=== PATIENT | female | born 1990 | race Caucasian/White ===

== ENCOUNTER 2024-10-22 04:04 | Emergency (ER) | payer OTHER ==
--- OUTSIDE RECORDS SUMMARY | 2024-10-22 04:08 | XMS REPORT | Continuity of Care Document ---
Author Name Unknown Address [address] [place] [address] [facility] Address [address] [place] [address] Care Team Providers Care Ophthalmic Assistant Name Role Phone Cher Day Attending Clinician Unavailable SAUMYA BUCKNER Attending Clinician Unavailable LAB90 Attending Clinician Unavailable Cher Day Admitting Clinician Unavailable Isaias Lawrence Admitting Clinician Unavailable Payers Payer Name Policy Type Policy Number Effective Date Expirati on Date Source BCBS 2 [id number] 2022 00:00:00 Problems Condition Name Condition Details Condition Category Status Onset Date Resolution Date Last Treatment Date Treating Clinician Comments Source Prediabete s Prediabete s Disease Active - 00:00: 00 Flores chandra BMI 45.0-49.9, adult BMI 45.0-49.9, adult Disease Active - 00:00: 00 Flores Granta l Depression Depression Disease Active 07-25 00:00: 00 Flores Skinner - Juanitaa l Allergies, Adverse Reactions, Alerts Allergy Name Allergy Type Status Severity Reaction(s) Onset Date Inactive Date Treating Clinician Comments Source No Known Allergie s DA Active U 08-20 00:00: 00 [facility] No Known Allergie s DA Active U 08-20 00:00: 00 [facility] Social History Social Habit Start Date Stop Date Quantity Comments Source History SDOH Alcohol Std Drinks Flores Jarvis ybgumaro - External History SDOH Alcohol Binge Flores Skinner - External Gender identity Litzy ey Susanne - External Sexual orientation K angeloy Nancygumaro - External History SDOH Alcohol Frequency Flores jung - External Alcohol intake 2023-02-09 00:00:00 2023-02-09 00:00:00 Current drinker of alcohol (finding) Flores Cruzgumaro - External Alcohol Comment 2022-07-25 00:00:00 2022-07-25 00:00:00 social Flores Skinner - External History of Social function 2022-07-25 00:00:00 2022-07-25 00:00:00 Flores Skinner - External Sex Assigned At 1990 00:00:00 1990 00:00:00 Flores Skinner - External Smoking Status Start Date Stop Date Source Never smoked tobacco Flores Cruzgumaro - External Medications Ordered Medication Name Filled Medication Name Start Date Stop Date Current Medication? Ordering Clinician Indication Dosage Frequency Signature (SIG) Comments Components Source Semaglutide -Weight Management (Wegovy) 1 MG/0.5ML subcutaneou s Solution Auto-inject or 02-09 00:00: 00 Yes [id number] 1mg Inject 1 mg into the skin once a week. Flores Granta prateek Semaglutide -Weight Management (Wegovy) 0.5 MG/0.5ML subcutaneou s Solution Auto-inject or 02-09 00:00: 00 02-09 00:00 :00 No [id number] .5mg Inject 0.5 mg into the skin once a week. Flores Granta prateek Semaglutide -Weight Management (Wegovy) 0.5 MG/0.5ML subcutaneou s Solution Auto-inject or 11-09 00:00: 00 Yes [id number] .5mg Inject 0.5 mg into the skin once a week Flores chandra Spironolact one 25 MG oral Tablet 11-09 00:00: 00 Yes [id number] 50mg Take 2 tablets (50 mg total) by mouth 2 times daily Flores chadnra Metformin HCl 500 MG oral Tablet 11-09 00:00: 00 Yes [id number] 1000mg Take 2 tablets (1,000 mg total) by mouth in the morning and 2 tablets (1,000 mg total) in the evening. Take with meals. Flores chandra Bupropion HCL XL 300 MG OR TB24 09-20 00:00: 00 Yes [id number] 300mg Take 1 tablet (300 mg total) by mouth daily Flores chandra Metformin HCl 500 MG oral Tablet 09-20 00:00: 00 Yes [id number] 500mg Take 1 tablet (500 mg total) by mouth in the morning and 1 tablet (500 mg total) in the evening. Take with meals. Flores chandra Semaglutide (0.25 or 0.5 mg/dose) 2 mg/3 mL SQ Solution Pen-Injecto r 09-20 00:00: 00 02-09 00:00 :00 No [id number] .5mg Inject 0.5 mg into the skin once a week Flores chandra Spironolact one 25 MG oral Tablet 09-20 00:00: 00 11-09 00:00 :00 No [id number] 25mg Take 1 tablet (25 mg total) by mouth 2 times daily Flores chandra Bupropion HCL XL 150 MG OR TB24 09-20 00:00: 00 11-09 00:00 :00 No TAKE TWO (2) TABLETS (300 MG TOTAL) BY MOUTH DAILY. Flores chandra Ondansetron (ZOFRAN) 4 MG oral TABLET DISPERSIBLE 08-22 00:00: 00 Yes [id number] 4mg [id number] 3D Take 1 tablet (4 mg total) by mouth every 8 hours as needed for nausea Flores chandra Bupropion HCL XL 150 MG OR TB24 08-22 00:00: 00 Yes [id number] 300mg Take 2 tablets (300 mg total) by mouth daily Flores chandra Semaglutide (0.25 or 0.5 mg/dose) 2 mg/1.5 mL SQ Solution Pen-Injecto r 08-22 00:00: 00 Yes [id number] .25mg Inject 0.25 mg into the skin once a week Flores chandra Spironolact one 25 MG oral Tablet 08-22 00:00: 00 Yes [id number] 25mg Take 1 tablet (25 mg total) by mouth 2 times daily Flores chandra Metformin HCl 500 MG oral Tablet 07-26 00:00: 00 Yes [id number] 500mg Take 1 tablet (500 mg total) by mouth in the morning and 1 tablet (500 mg total) in the evening. Take with meals. Flores chandra Vitamin D, Ergocalcife rol, 1.25 MG (09910 UT) oral Capsule 07-26 00:00: 00 02-12 00:00 :00 No [id number] 19806J Take 1 capsule (50,000 units total) by mouth once a week Flores chandra Albuterol Sulfate 1.25 MG/3ML inhalation Inhalant Solution 07-25 00:00: 00 Yes [id number] 1.25mg Q.25D Take 3 mL (1.25 mg total) by nebulizati on every 6 hours as needed for wheezing Flores chandra Bupropion HCL XL 150 MG OR TB24 07-25 00:00: 00 Yes [id number] 150mg Take 1 tablet (150 mg total) by mouth daily Flores chandra Azithromyci n 250 MG oral Tablet 2023-0 2-14 00:00: 00 09-20 00:00 :00 No [id number] Take 2 tablets by mouth on day 1 then 1 tablet by mouth daily for 4 days thereafter . Flores Seybold - Externa l Vital Signs Vital Name Observation Time Observation Value Juvenal hurtado Systolic blood pressure 2023-02-09 20:50:00 118 mm[Hg] Flores Seybo ld - External Diastolic blood pressure 2023-02-09 20:50:00 80 mm[Hg] Flores Seybo ld - External Heart rate 2023-02-09 20:50:00 103 /min Kelse y Seybold - External Body temperature 2023-02-09 20:50:00 36.61 Brigid Flores Seybold - External Respiratory rate 2023-02-09 20:50:00 15 /min Flores Seybold - External Body height 2023-02-09 20:50:00 175.3 cm Litzy ey Seybold - External Body weight 2023-02-09 20:50:00 137.44 kg Litzy ey Seybold - External BMI 2023-02-09 20:50:00 44.75 kg/m2 Litzy ey Seybold - External Systolic blood pressure 2022-11-09 20:28:00 120 mm[Hg] Flores Seybo ld - External Diastolic blood pressure 2022-11-09 20:28:00 80 mm[Hg] Flores ybo ld - External Heart rate 2022-11-09 20:28:00 86 /min Kelse y Seybold - External Body temperature 2022-11-09 20:28:00 36.39 Brigid Flores Seybold - External Respiratory rate 2022-11-09 20:28:00 15 /min Flores Seybold - External Body height 2022-11-09 20:28:00 175.3 cm Litzy ey Seybold - External Body weight 2022-11-09 20:28:00 137.44 kg Litzy ey Seybold - External BMI 2022-11-09 20:28:00 44.75 kg/m2 Litzy ey Seybold - External Systolic blood pressure 2022-09-20 20:49:00 120 mm[Hg] Flores Seybo ld - External Diastolic blood pressure 2022-09-20 20:49:00 80 mm[Hg] Flores Seybo ld - External Heart rate 2022-09-20 20:49:00 102 /min Kelse y Seybold - External Body temperature 2022-09-20 20:49:00 36.17 Brigid Flores Seybold - External Respiratory rate 2022-09-20 20:49:00 15 /min Flores Seybold - External Body height 2022-09-20 20:49:00 175.3 cm Litzy ey Seybold - External Body weight 2022-09-20 20:49:00 139.254 kg Litzy ey Seybold - External BMI 2022-09-20 20:49:00 45.34 kg/m2 Litzy ey Seybold - External Systolic blood pressure 2022-08-22 18:58:00 128 mm[Hg] Flores Seybo ld - External Diastolic blood pressure 2022-08-22 18:58:00 62 mm[Hg] Flores Seybo ld - External Heart rate 2022-08-22 18:58:00 86 /min Kelse y Seybold - External Body temperature 2022-08-22 18:58:00 36.56 Brigid Flores Seybold - External Respiratory rate 2022-08-22 18:58:00 14 /min Flores Seybold - External Body height 2022-08-22 18:58:00 175.3 cm Litzy ey Seybold - External Body weight 2022-08-22 18:58:00 144.153 kg Litzy ey Seybold - External BMI 2022-08-22 18:58:00 46.93 kg/m2 Litzy ey Seybold - External Oxygen saturation in Arterial blood by Pulse oximetry 2022-08-22 18:58:00 99 /min Flores Seybo ld - External Systolic blood pressure 2022-07-25 22:14:00 124 mm[Hg] Flores Seybo ld - External Diastolic blood pressure 2022-07-25 22:14:00 80 mm[Hg] Flores Seybo ld - External Heart rate 2022-07-25 22:14:00 104 /min Kelse y Seybold - External Body temperature 2022-07-25 22:14:00 36.5 Brigid Flores Seybold - External Respiratory rate 2022-07-25 22:14:00 15 /min Flores Skinner - External Body height 2022-07-25 22:14:00 175.3 cm Litzy Skinner - External Body weight 2022-07-25 22:14:00 146.965 kg Litzy Skinner - External BMI 2022-07-25 22:14:00 47.85 kg/m2 Litzy Skinner - External Procedures Procedure Date / Time Performed Performing Clinicia n Source [id number] 2020-08-06 00:00:00 [facility] [id number] 2020-08-06 00:00:00 [facility] [id number] 2020-08-06 00:00:00 [facility] [id number] 2020-08-06 00:00:00 [facility] Encounters Start Date/Time End Date/Time Encounter Type Admission Type Attending [facility] Care Department Encounter ID Source 2020-08-17 04:29:14 Inpatient [facility] [id number] [facility] 2020-08-05 22:20:00 Inpatient Cher Nava [facility] [id number] [facility] 2020-08-03 13:00:00 [id number] 2024-04-11 00:00:00 2024-04-11 00:00:00 Outpatient SAUMYA BUCKNER [id number] Flores Skinner 2023-10-21 00:00:00 2023-10-21 00:00:00 Outpatient SAUMYA BUCKNER [id number] Flores Skinner 2023-05-29 10:30:00 2023-05-29 10:30:00 Outpatient SAUMYA BUCKNER [id number] Flores Skinner 2023-02-09 16:00:00 2023-02-09 16:00:00 Outpatient SAUMYA BUCKNER [id number] Flores Skinner 2022-11-09 15:30:00 2022-11-09 15:30:00 Outpatient SITA SAUMYA FLORES THURMAN [id number] Flores Skinner 2022-10-17 16:00:00 2022-10-17 16:00:00 Outpatient SITA SAUMYA THURMAN [id number] Flores Skinner 2022-09-20 16:00:00 2022-09-20 16:00:00 Outpatient SITA SAUMYA THURMAN [id number] Flores Skinner 2022-08-22 14:00:00 2022-08-22 14:00:00 Outpatient SITA SAUMYA THURMAN [id number] Floresrichard Skinner 2022-07-26 00:00:00 2022-07-26 00:00:00 Outpatient SITA SAUMYA THURMAN [id number] Floresrichard Skinner 2022-07-25 17:15:00 2022-07-25 17:15:00 Outpatient LAB90 [facility] [id number] [facility]22-07-25 16:30:00 2022-07-25 16:30:00 Outpatient SITA SAUMYA THURMAN [id number] Flores Skinner 2022-07-25 00:00:00 2022-07-25 00:00:00 Outpatient SITA SAUMYA THURMAN [id number] Flores Susanne 2022-07-14 16:30:00 2022-07-14 16:30:00 Outpatient SITA SAUMYA THURMAN [id number] [facility] Results Test Description Test Time Test Comments Results Resul t Comments Source - US PELVIS COMPLETE 2020-08-14 21:31:00 [facility] 1990 Sex: F Patient Name: LINDY ROMERO Unit No: [id number] EXAMS: CPT CODE: [id number] US PELVIS COMPLETE 95933 PROCEDURE: PELVIC ULTRASOUND INDICATION: Pelvic pain status post vaginal delivery 9 days ago. COMPARISON: None. TRANSABDOMINAL SCAN: Uterus measures 13.1 x 7.9 x 9.8 cm with heterogeneous endometrial stripe thickness of 1.9 cm. No vascularity of the endometrium with color Doppler. Right adnexal round anechoic avascular lesion with posterior acoustic enhancement measures 1.9 x 1.7 x 1.5 cm. Neither ovary is visualized. No free pelvic fluid. TRANSVAGINAL SCAN: Not performed. IMPRESSION: 1. Thickened, heterogeneous endometrium without significant vascularity or organized fluid collection. 2. Nonvisualization of the ovaries. 3. Small right adnexal cyst. SL: SG-H at 2131 Reported and signed by: Washington Marks MD CC: Cher Day MD; Frank Wen MD Technologist: Carolynn Ortiz RDMS Probe: Trnscrbd D/ (2130) [id number] Orig Print D/T: S: 08/14/2020 (2133) [facility] NAME: LINDY ROMERO Radiology Department PHYS: Frank Hoover [address] : 1990 AGE: 30 SEX: F [place], [place] [address] LOC: LOYD PHONE #: [phone] EXAM DATE: 08/14/2020 STATUS: ЮЛИЯ ER FAX #: [phone] RAD NO: Page 1 Signed Report Patient Name: LINDY ROMERO Unit No: [id number] EXAMS: CPT CODE: [id number] US PELVIS COMPLETE 45518 (Continued) [facility] NAME: LINDY ROMERO Radiology Department PHYS: Frank Hoover [address] : 1990 AGE: 30 SEX: F [place], [place] [address] LOC: LOYD PHONE #: [phone] EXAM DATE: 08/14/2020 STATUS: ЮЛИЯ RAMIREZ FAX #: [phone] RAD NO: Page 2 Signed Report UA RFLX MICR CULT IF [id number] 20:30:00* Test Item Value Reference Range Interpretation Comme nts UA COLOR (test code = COLU) DARK YELLOW YELLOW UA APPEARANCE (test code = APPU) HAZY CLEAR UA GLUCOSE DIPSTICK (test code = DGLUU) NEGATIVE NEGATIVE UA BILIRUBIN DIPSTICK (test code = BILU) NEGATIVE NEGATIVE UA KETONE DIPSTICK (test code = KETU) NEGATIVE NEGATIVE UA SPECIFIC GRAVITY (test code = SGU) 1.025 1.001-1.035 N UA BLOOD DIPSTICK (test code = SANTIAGO) 3+ NEGATIVE A UA PH DIPSTICK (test code = EMPERATRIZ) 6.0 5-9 UA PROTEIN DIPSTICK (test code = PROU) TRACE NEGATIVE A UA UROBILINIOGEN DIPSTICK (test code = URO) 0.2 EU/dL See_Comment [Automated message] The system which generated this result transmitted reference range: <=1.0. The reference range was not used to interpret this result as normal/abnormal. UA NITRITE DIPSTICK (test code = LELIA) NEGATIVE NEGATIVE UA LEUKOCYTE ESTERASE DIPSTICK (test code = LEUU) 2+ NEGATIVE A UA WBC (test code = WBCU) 10-15 #/hpf NONE SEEN A UA RBC (test code = RBCU) TOO NUMEROUS TO CNT #/hpf NONE SEEN A UA EPITHELIAL CELLS (test code = EPIU) FEW #/hpf NONE SEEN UA BACTERIA (test code = BACU) FEW #/hpf NONE SEEN A Indication for culture: Suprapubic PainSpecimen Description: CLEAN CATCHCBC W/AUTO [id number] 20:21:00* Test Item Value Reference Range Interpretation Comme nts WHITE BLOOD CELL (test code = WBC) 11.9 K/mm3 6.5-12.3 N RED BLOOD CELL (test code = RBC) 4.38 M/mm3 3.51-4.69 N HEMOGLOBIN (test code = HGB) 13.3 g/dL 10.1-13.8 N HEMATOCRIT (test code = HCT) 40.5 % 32.5-41.8 N MEAN CELL VOLUME (test code = MCV) 92.5 fL 84.6-96.6 N MEAN CELL HGB (test code = MCH) 30.4 pg 27.3-33.9 N MEAN CELL HGB CONCETRATION ( test code = MCHC) 32.8 gm/dL 32.0-34.2 N RED CELL DISTRIBUTION WIDTH (test code = RDW) 13.3 % 12.2-16.3 N PLATELET COUNT (test code = PLT) 289 K/mm3 134-363 N MEAN PLATELET VOLUME (test c ode = MPV) 9.1 fL 9.2-12.7 L NEUTROPHIL % (test code = NT%) 76.6 % 57.9-77.3 N LYMPHOCYTE % (test code = LY%) 16.6 % 14.5-29.7 N MONOCYTE % (test code = MO%) 4.7 % 3.6-10.2 N EOSINOPHIL % (test code = EO%) 1.4 % 0.0-3.0 N BASOPHIL % (test code = BA%) 0.4 % 0.1-0.9 N NEUTROPHIL # (test code = NT#) 9.1 K/mm3 LYMPHOCYTE # (test code = LY#) 2.0 K/mm3 MONOCYTE # (test code = MO#) 0.6 K/mm3 EOSINOPHIL # (test code = EO#) 0.17 K/mm3 BASOPHIL # (test code = BA#) 0.1 K/mm3 RBC MORPHOLOGY REQUIRED (lissett t code = RBCM) NORMAL NORMAL PLATELET MORPHOLOGY REQUIRED (test code = PLTMR) NORMAL NORMAL HGB [id number] 08:06:00* Test Item Value Reference Range Interpretation Comme nts HEMOGLOBIN (test code = HGB) 11.7 g/dL 10.1-13.8 N HEMATOCRIT (test code = HCT) 35.5 % 32.5-41.8 N AG HEPATITIS B [id number] 03:10:00* Test Item Value Reference Range Interpretation Comme nts AG HEPATITIS B SURFACE (test code = HBSAG) NONREACTIVE NONREACTIVE IS CONSENT FORM SIGNED FOR HIV TESTING? NAB HEPATITIS C [id number] 03:10:00* Test Item Value Reference Range Interpretation Comme nts AB HEPATITIS C (test code = HCVAB) NONREACTIVE NONREACTIVE SIGNAL TO CUTOFF (test code = CUTOFF) <0.02 <0.80 N IS CONSENT FORM SIGNED FOR HIV TESTING? NAB [id number] 03:10:00* Test Item Value Reference Range Interpretation Comme nts AB TREPONEMA (test code = TREPAB) NONREACTIVE NONREACTIVE IS CONSENT FORM SIGNED FOR HIV TESTING? NAB HIV 1 03:10:00* Test Item Value Reference Range Interpretation Comme nts AB HIV 1 2 (test code = IGK42BR) NONREACTIVE NONREACTIVE Done by [employer] 4th Gen HIV Ag/Ab Combo Screen IS CONSENT FORM SIGNED FOR HIV TESTING? NAG HEPATITIS B [id number] 03:03:00* Test Item Value Reference Range Interpretation Comme nts AG HEPATITIS B SURFACE (test code = HBSAG) NONREACTIVE NONREACTIVE IS CONSENT FORM SIGNED FOR HIV TESTING? NAB HEPATITIS C [id number] 03:03:00* Test Item Value Reference Range Interpretation Comme nts AB HEPATITIS C (test code = HCVAB) NONREACTIVE SIGNAL TO CUTOFF (test code = CUTOFF) <0.80 IS CONSENT FORM SIGNED FOR HIV TESTING? NAB [id number] 03:03:00* Test Item Value Reference Range Interpretation Comme nts AB TREPONEMA (test code = TREPAB) NONREACTIVE NONREACTIVE IS CONSENT FORM SIGNED FOR HIV TESTING? NAB HIV 1 03:03:00* Test Item Value Reference Range Interpretation Comme nts AB HIV 1 2 (test code = [id number]) NONREACTIVE IS CONSENT FORM SIGNED FOR HIV TESTING? NCBC W/AUTO [id number] 02:01:00* Test Item Value Reference Range Interpretation Comme nts WHITE BLOOD CELL (test code = WBC) 13.9 K/mm3 6.5-12.3 H RED BLOOD CELL (test code = RBC) 4.19 M/mm3 3.51-4.69 N HEMOGLOBIN (test code = HGB) 12.9 g/dL 10.1-13.8 N HEMATOCRIT (test code = HCT) 37.7 % 32.5-41.8 N MEAN CELL VOLUME (test code = MCV) 90.0 fL 84.6-96.6 N MEAN CELL HGB (test code = MCH) 30.8 pg 27.3-33.9 N MEAN CELL HGB CONCETRATION ( test code = MCHC) 34.2 gm/dL 32.0-34.2 N RED CELL DISTRIBUTION WIDTH (test code = RDW) 13.9 % 12.2-16.3 N PLATELET COUNT (test code = PLT) 264 K/mm3 134-363 N MEAN PLATELET VOLUME (test c ode = MPV) 10.2 fL 9.2-12.7 N NEUTROPHIL % (test code = NT%) 73.1 % 57.9-77.3 N LYMPHOCYTE % (test code = LY%) 20.0 % 14.5-29.7 N MONOCYTE % (test code = MO%) 5.8 % 3.6-10.2 N EOSINOPHIL % (test code = EO%) 0.3 % 0.0-3.0 N BASOPHIL % (test code = BA%) 0.4 % 0.1-0.9 N NEUTROPHIL # (test code = NT#) 10.2 K/mm3 LYMPHOCYTE # (test code = LY#) 2.8 K/mm3 MONOCYTE # (test code = MO#) 0.8 K/mm3 EOSINOPHIL # (test code = EO#) 0.04 K/mm3 BASOPHIL # (test code = BA#) 0.1 K/mm3 RBC MORPHOLOGY REQUIRED (lissett t code = RBCM) NORMAL NORMAL PLATELET MORPHOLOGY REQUIRED (test code = PLTMR) NORMAL NORMAL COVID 19 Asymptomatic IH [id number] 15:28:00* Test Item Value Reference Range Interpretation Comme nts COVID 19 Asymptomatic IH AG (test code = COVNONPUIAG) NEGATIVE NEGATIVE This test has be en authorized only for the detection ofproteins from SARS-CoV-2, not for any other viruses orpathogens. Negative results should be treated as presumptive andconfirmed with a molecular assay, if necessary for patientmanagement. Negative results do not rule out COVID-19 andshould not be used as the sole basis for treatment orpatient management decisions, including infection controldecisions. Negative results should be considered in thecontext of a patient's recent exposures, history and thepresence of clinical signs and symptoms consistent withCOVID-19. This test has not been FDA cleared or approved; the test hasbeen authorized by FDA under an Emergency Use Authorization(EUA) for use by laboratories certified under the CLIA thatmeet the requirements to perform moderate, high or waivedcomplexity tests. This test is authorized for use at thePoint of Care (POC), i.e., in patient care settingsoperating under a CLIA Certificate of Waiver, Certificate ofCompliance, or Certificate of Accreditation. This test is only authorized for the duration of thedeclaration that circumstances exist justifying theauthorization of emergency use of in vitro diagnostic testsfor detection and/or diagnosis of COVID-19 under Rnacqun332(b)(1) of the Act, 21 U.S.C. 360bbb-3(b)(1), unless theauthorization is terminated or revoked sooner. Notes Date/Time Note Provider Source 2023-02-09 15:54:38 Formatting of this n ote is different from the original. Chief Complaint Patient presents with Diabetes 3 month follow up on diabetes Krystle Melvin MA II [facility] 2020-08-14 19:20:00 [facility] EMERGENCY PROVIDER REPORT REPORT#:[id number] REPORT STATUS: Signed DATE:08/14/20 TIME: 1919 PATIENT: LINDY ROMERO UNIT #: [id number] ROOM/BED: AGE: 30 SEX: F PCP PHYS: No Primary or Family Physician SERVICE AUTHOR: Frank Wen MD * ALL edits or amendments must be made on the electronic/computer document * HPI- Female General Initial Greet Date/Time 08/14/201912 Presentation Chief Complaint Abdominal pain, Pelvic pain )( Sudden in Onset? No Exacerbated by Nothing Relieved by Nothing Free Text HPI Notes Free Text HPI Notes Patient is s/p vaginal delivery 08/06/2020, patient reports that she has pain in the lower abdomen, no fever, + nausea, no constipation, + loose stool today. Risk- Female Risk Stratification Ectopic Risk factors reviewed Review of Systems ROS Statements All systems rev neg except as marked. Focused Review of Systems Constitutional Denies: Lethargy. Ears/Nose/Throat Denies: Earache R. GI Denies: Hematemesis. Female Reports: Pelvic pain, Urinary frequency. Denies: Urination decreased. Musculoskeletal Denies: Thoracic pain. Endocrine Denies: Weight loss. Skin Denies: Jaundice. Neurologic Denies: Change LOC, Confusion, Dizziness. Past Medical History - Adult Stated Complaint ABDOMINAL PAIN Allergies Coded Allergies: No Known Allergies (08/21/15) Home Medications Active Scripts LABETALOL (TRANDATE) 50 MG PO BID LABETALOL (TRANDATE) 50 MG PO BID #30 Prov: 08/25/15 ACETAMINOPHEN/CODEINE (TYLENOL WITH CODEINE #3 300/30 MG) 1-2 TAB PO Q4H PRN PRN MODERATE PAIN (SCORE 4 - 6) ACETAMINOPHEN/CODEINE (TYLENOL WITH CODEINE #3 300/30 MG) 1-2 TAB PO Q4H PRN PRN MODERATE PAIN (SCORE 4 - 6) #20 Prov: 08/25/15 IBUPROFEN (MOTRIN) 600 MG PO Q6H PRN PRN MILD PAIN NOT RELIEVED BY TYL. IBUPROFEN (MOTRIN) 600 MG PO Q6H PRN PRN MILD PAIN NOT RELIEVED BY TYL. #30 TAB Prov: 08/07/20 Discontinued Scripts IBUPROFEN (MOTRIN) 600 MG PO Q6H PRN PRN MILD PAIN NOT RELIEVED BY TYL. IBUPROFEN (MOTRIN) 600 MG PO Q6H PRN PRN MILD PAIN NOT RELIEVED BY TYL. #30 Prov: 08/25/15 DC: 08/07/20 0941 Reported Medications PNV/FE FUM/FA ( MULTIVITAMIN) 1 TAB PO DAILY Review of Nursing Notes Rev avail, and agree Smoking status: Smoking status for patients 13 years old or older: Never Smoker Physical Exam Vital Signs Vital Signs First Documented: Result Date Time Pulse Ox 98 08/14 190 B/P 141/93 / 1908 B/P Mean 109 / 1908 O2 Delivery Room air 08/15 1907 Temp 36.7 08/14 190 Pulse 89 08/14 1908 Resp 20 08/15 1907 Last Documented: Result Date Time Pulse Ox 98 08/14 190 B/P 141/93 08/14 1908 B/P Mean 109 08/14 1908 O2 Delivery Room air 08/15 1907 Temp 36.7 08/15 1907 Pulse 89 03/06 1908 Resp 20 08/15 1907 Review of Vital Signs Reviewed Basic Physical Exam Basic PE GEN: Well appearing/NAD, HEAD: Atraumatic/NC, EYES: PERRL, conj clear, ENT: Membranes moist, NECK: Supple, RESP: No resp distress, CV: Reg rate rhythm, EXT: No gross abnormality, SKIN: No rashes, warm/dry, NEURO: alert oriented, NEURO: gross movement NL, PSYCH: NL thought content Focused PE Abdomen/GI Tenderness/Guarding/Rebound Tender suprapubic. Genitourinary General Exam deferred Interpretation Diagnostics Lab Results Interpretation Results Laboratory Tests 08/14/20 2015: [Embedded Image Not Available] Laboratory Tests: 08/14 2014 Chemistry Sodium (135 - 145 mEq/L) 142 Potassium (3.5 - 5.0 mEq/L) 4.2 Chloride (100 - 115 mEq/L) 104 Carbon Dioxide (22 - 31 mEq/L) 26 Anion Gap (10 - 20) 16.60 BUN (7 - 18 mg/dL) 18 Creatinine (0.5 - 1.0 mg/dL) 0.9 Glomerular Filtr Rate (>60 ml/min) 74 Glucose (65 - 110 mg/dL) 95 Calcium (8.4 - 10.2 mg/dL) 9.1 Total Bilirubin (0.2 - 1.0 mg/dL) 0.4 AST (15 - 37 units/L) 24 ALT (12 - 78 units/L) 42 Total Alk Phosphatase (46 - 116 units/L) 126 H Total Protein (6.3 - 8.2 gm/dL) 6.9 Albumin (3.4 - 4.8 gm/dL) 3.2 L Hematology WBC (6.5 - 12.3 K/mm3) 11.9 RBC (3.51 - 4.69 M/mm3) 4.38 Hgb (10.1 - 13.8 g/dL) 13.3 Hct (32.5 - 41.8 %) 40.5 MCV (84.6 - 96.6 fL) 92.5 MCH (27.3 - 33.9 pg) 30.4 MCHC (32.0 - 34.2 gm/dL) 32.8 RDW (12.2 - 16.3 %) 13.3 Plt Count (134 - 363 K/mm3) 289 MPV (9.2 - 12.7 fL) 9.1 L Neut % (Auto) (57.9 - 77.3 %) 76.6 Lymph % (Auto) (14.5 - 29.7 %) 16.6 [place] % (Auto) (3.6 - 10.2 %) 4.7 Eos % (Auto) (0.0 - 3.0 %) 1.4 Baso % (Auto) (0.1 - 0.9 %) 0.4 Neut # (Auto) (K/mm3) 9.1 Lymph # (Auto) (K/mm3) 2.0 [place] # (Auto) (K/mm3) 0.6 Eos # (Auto) (K/mm3) 0.17 Baso # (Auto) (K/mm3) 0.1 Urines Urine Color (YELLOW) DARK YELLOW Urine Appearance (CLEAR) HAZY Urine pH (5 - 9) 6.0 Ur Specific [place] (1.001 - 1.035) 1.025 Urine Protein (NEGATIVE) TRACE H Urine Glucose (UA) (NEGATIVE) NEGATIVE Urine Ketones (NEGATIVE) NEGATIVE Urine Blood (NEGATIVE) 3+ H Urine Nitrite (NEGATIVE) NEGATIVE Urine Bilirubin (NEGATIVE) NEGATIVE Urine Urobilinogen (<=1.0 EU/dL) 0.2 Ur Leukocyte Esterase (NEGATIVE) 2+ H Urine RBC (NONE SEEN #/hpf) TOO NUMEROUS TO CNT H Urine WBC (NONE SEEN #/hpf) 10-15 H Ur Epithelial Cells (NONE SEEN #/hpf) FEW Urine Bacteria (NONE SEEN #/hpf) FEW H Microbiology: Date/Time Procedure - Status Source Growth 08/14 2029 Urine Culture - RECD URINE Recent Impressions: ULTRASOUND - US PELVIS COMPLETE 08/14 2054 Report Impression - Status: SIGNED Entered: 08/14/20202133 IMPRESSION: 1. Thickened, heterogeneous endometrium without significant vascularity or organized fluid collection. 2. Nonvisualization of the ovaries. 3. Small right adnexal cyst. SL: SG-H Impression By: [email or web address] - Washington Marks MD Lab Imaging Statement Laboratory radiographic studies reviewed and considered in the medical decision-making. Re-Evaluation MDM ED Course Medication(s) Ordered Medication(s) Ordered: Central Nervous System Agents Sig/Noemi Start time Last Medication Dose Route Stop Time Status Admin Morphine Sulfate 4 MG X1ED STA 08/15 1947 DC 08/14 IV 08/14 Electrolytic, Caloric, And Jong Sig/Noemi Start time Last Medication Dose Route Stop Time Status Admin Sodium Chloride 1,000 ML X1ED STA 08/15 1947 DC 08/14 IV 08/14 Gastrointestinal Drugs Sig/Neomi Start time Last Medication Dose Route Stop Time Status Admin Ondansetron HCl 4 MG ONCE ONE 08/15 1999 DC 08/14 IV 08/14 Consultation Consultation Referral/Consult Name Cher Day MD Television Station Manager Called DAIRY TECHNICIAN Requested Call Time 2138 Requested Call Date 08/14/20 Call Returned Call returned Call Returned Time 2138 Call Returned Date 08/14/20 Television Station Manager Will see in office Free Text Consult Notes Dr Puckett for Dr Day recommended discharge and follow up in clinic, case was discussed in detail, all questions answered, patient also agrees with plan as recommended. Patient Discharge Departure Vital Signs/Condition Vital Signs First Documented: Result Date Time Pulse Ox 98 03/ 1908 B/P 141/93 03/06 1908 B/P Mean 109 03/06 1908 O2 Delivery Room air 03/ 1908 Temp 36.7 03/06 1908 Pulse 89 03/06 1908 Resp 20 / 1908 Last Documented: Result Date Time Pulse Ox 98 / 1908 B/P 141/93 03/06 1908 B/P Mean 109 03/06 1908 O2 Delivery Room air 03/ 1908 Temp 36.7 03/06 1908 Pulse 89 03/06 1908 Resp 20 08/14 1908 All vital signs available at the time of this entry have been reviewed. Condition Stable Clinical Impression Clinical Impression Primary Impression: Pelvic pain Disposition Decision Discharge )( Discharged to Home Yes )( Time 2142 )( Date 08/14/20 Discharge/Care Plan Counseled Regarding Diagnosis, Lab results, Imaging studies, Need for follow-up, When to return to ED (Auto) Prescriptions Current Visit Scripts CEPHALEXIN (KEFLEX) 500 MG PO Q6H CEPHALEXIN (KEFLEX) 500 MG PO Q6H #28 CAPS Prescriptions Reviewed Risks, Benefits, Alternative treatment Patient Instructions Urinary Tract Infections in Women Referrals Cher Day MD Departure Forms WORK/SCHOOL EXCUSE-CAREGIVER 2 Discharge Note I have spoken with the patient and/or caregivers. I have explained the patient's condition, diagnoses and treatment plan based on the information available to me at this time. I have answered the patient's and/or caregiver's questions and addressed any concerns. The patient and/or caregivers have as good an understanding of the patient's diagnosis, condition and treatment plan as can be expected at this point. The vital signs have been stable. The patient's condition is stable and appropriate for discharge from the emergency department. The patient will pursue further outpatient evaluation with the primary care physician or other designated or consulting physician as outlined in the discharge instructions. The patient and/or caregivers are agreeable to this plan of care and follow-up instructions have been explained in detail. The patient and/or caregivers have received these instructions in written format and have expressed an understanding of the discharge instructions. The patient and/or caregivers are aware that any significant change in condition or worsening of symptoms should prompt an immediate return to this or the closest emergency department or a call to 911. at 2156 RPT #:[id number] END OF REPORT [facility] 2020-08-07 09:40:00 [facility] ([facility]) OB Postpart Progr Note REPORT#:[id number] REPORT STATUS: Signed DATE:08/07/20 TIME: 09 PATIENT: LINDY ROMERO UNIT #: [id number] ROOM/BED: [address] : 91 AGE: 30 SEX: F ATTEND: Cher Day MD ADM AUTHOR: Cher Day MD * ALL edits or amendments must be made on the electronic/computer document * Subjective Subjective Admission EGA: Weeks: 39 Days: 5 EGA at delivery (wks/days): 39 weeks Status/day: post (1) Patient reports: Patient reports: No: complaints. Objective Nursing Documentation Review Nursing data: Laboratory Tests: 08/07 0742 Hematology Hgb (10.1 - 13.8 g/dL) 11.7 Hct (32.5 - 41.8 %) 35.5 Vital Signs Date Temp Pulse Resp B/P B/P Mean Pulse Ox FiO2 08/06-08/07 98.1-98.8 81-100 18 116-158/55-92 82.0-113.0 97 The data set between the solid lines has been imported from nursing documentation. Any exceptions have been noted below under Provider comments. Feeding preference: Post hemorrhage risk score: Medium Risk for Hemorrhage. Provider comments on imported nursing data: [] Physical Exam Lungs: clear to auscultation Abdomen: soft, no abnormal tenderness, no guarding Uterus: involution appropriate, non-tender Lochia: normal Lacerations: Perineal laceration(s): 2nd Degree (and rt labial) Diagnosis, Assessment Plan Diagnosis, Assessment Plan Assessment: nml progress Plan: routine care, discharge today at 0941 RPT #:[id number] END OF REPORT [facility] 2020-08-06 12:24:00 [facility] ([facility]) OB Delivery Note REPORT#:[id number] REPORT STATUS: Signed DATE:08/06/20 TIME: 1224 PATIENT: LINDY ROMERO UNIT #: [id number] ROOM/BED: [address] : [address] AGE: 30 SEX: F ATTEND: Cher Day MD ADM AUTHOR: Cher Day MD * ALL edits or amendments must be made on the electronic/computer document * OB Delivery Pre-delivery GBS status: GBS status: negative Admission EGA: Weeks: 39 Days: 5 EGA at delivery (wks/days): 39 weeks Baby A Information Baby A information Delivery date: 08/06/20 status: live born Wt of baby: not yet available Gender: female 1 minute: 8 5 minutes: 9 Presentation: vertex Vaginal Delivery Vaginal delivery: Labor: induced Medications/Devices used: oxytocin Vaginal delivery: spontaneous Amniotic fluid: clear Anesthesia type: epidural anesthesia Episiotomy: none Laceration repair: yes, 3-0 suture Placenta: spontaneous Post delivery meds used: oxytocin Count: correct Mother's condition: mother stable 's condition: stable in room Lacerations: Perineal laceration(s): 2nd Degree (and rt labial) Blood Loss/Details Blood loss at delivery: no more than expected at 1226 RPT #:[id number] END OF REPORT [facility] 2020-08-06 10:52:00 [facility] ([facility]) Clinical Note REPORT#:[id number] REPORT STATUS: Signed DATE:08/06/20 TIME: 1052 PATIENT: LINDY ROMERO UNIT #: [id number] ROOM/BED: [address] : 91 AGE: 30 SEX: F ATTEND: Cher Day MD ADM AUTHOR: Bessie Barkley MD * ALL edits or amendments must be made on the electronic/computer document * Clinical Note Note: asked to AROM multip, epidural, Younger FHTs 120s cat 1 [place] q 2-6" SVE //-2to-3, AROm, clear did not place IUPC as pt making progress and appears to have fast labors at 1054 RPT #:[id number] END OF REPORT [facility] 2020-08-06 10:52:00 [facility] ([facility]) Clinical Note REPORT#:[id number] REPORT STATUS: Signed DATE:08/06/20 TIME: 1052 PATIENT: LINDY ROMERO UNIT #: [id number] ROOM/BED: [address] : 91 AGE: 30 SEX: F ATTEND: Cher Day MD ADM AUTHOR: Bessie Barkley MD * ALL edits or amendments must be made on the electronic/computer document * See Addendum Clinical Note Note: asked to AROM multip, epidural, Younger FHTs 120s cat 1 [place] q 2-6" SVE 7/70/-2to-3, AROm, clear did not place IUPC as pt making progress and appears to have fast labors at 1054 Addendum 1: 08/06/20 1054 by Bessie Barkley MD AROm 10:05 at 1054 RPT #:[id number] END OF REPORT [facility] 2020-08-06 07:55:00 [facility] ([facility]) Clinical Note REPORT#:[id number] REPORT STATUS: Signed DATE:08/06/20 TIME: 0755 PATIENT: LINDY ROMERO UNIT #: [id number] ROOM/BED: [address] : 91 AGE: 30 SEX: F ATTEND: Cher Day MD ADM AUTHOR: Cher Day MD * ALL edits or amendments must be made on the electronic/computer document * Clinical Note Note: Pt uncomfortable w/ctx Vital Signs Date Temp Pulse Resp B/P B/P Mean Pulse Ox FiO2 08/06 97.8-98.2 85 128/77 99.0 FHR cat 1 Ctx q 2 min SVE 5/80/-2 Cervidil removed Will get epidural, start pit and AROM at 0755 RPT #:[id number] END OF REPORT [facility] 2020-08-06 06:20:00 [facility] ([facility]) OB Admission / H P REPORT#:[id number] REPORT STATUS: Signed DATE:08/06/20 TIME: 619 PATIENT: LINDY ROMERO UNIT #: [id number] ROOM/BED: [address] : 91 AGE: 30 SEX: F ATTEND: Cher Day MD ADM AUTHOR: Cher Day MD * ALL edits or amendments must be made on the electronic/computer document * OB History Chief complaint: scheduled induction HPI: @ 39.6 wk for induction due to CHTN, obesity history: : 2 Term: 1 Living children: 1 Complications (prev preg): preeclampsia Current : Admission EGA (weeks) 39 Admission EGA (days) 5 Conditions of : HTN - chronic Labs: Blood type: A Rh: positive Rubella: immune Hepatitis B: negative HIV: negative STD: negative Syphilis: currently negative GBS: positive Past medical history: denies PMH Past surgical history: denies PSH Social history: employed, , no alcohol use, no tobacco use, no drug use Allergies Coded Allergies: No Known Allergies (08/21/15) Review of Systems All systems rev neg: except as marked Objective General VS: Last Documented: Result Date Time B/P Mean 99.0 08/06 0108 B/P 128/77 08/06 0108 Pulse 85 08/06 0108 Vital Signs Date Temp Pulse Resp B/P B/P Mean Pulse Ox FiO2 08/06 85 128/77 99.0 PATIENT WEIGHT: Weight (lb): 305 Weight (oz): Weight (kg): 138.346 Physical Exam HEENT: normocephalic w/o injury, pupils equal Cardiac: regular rate and rhythm Lungs: clear to auscultation Abdomen: gravid, no abnormal tenderness, no guarding Uterine activity: Monitor: toco Pelvic exam: Pelvis clinically adequate: yes, inlet appears appropriate, pubic bone config appropr, no midpelvic contraction Cervical/ exam: Dilatation (cm): 2 Effacement (%): 80 Est wt (gms): 3600 station: - 2 presentation: cephalic Membranes: Membranes: Intact Baby A: Baby A baseline: 110 bpm Baby A variability: moderate 6-25 bpm Baby A accelerations: 15 X 15 Baby A decelerations: none Baby A FHR category: category 1 Diagnosis, Assessment Plan Diagnosis, Assessment Plan Free Text A P: @ 39.6 wk for induction of labor Cervidil for ripening then pitocin at 0755 RPT #:[id number] END OF REPORT [facility]
[2024-10-22] MEDS ORDERED: NA CHLORIDE 0.9% 1,000 ML ONE (04:30)
[2024-10-22] MEDS ORDERED: ONDANSETRON 4 MG/2 ML VIAL ONE (04:30)
[2024-10-22] MEDS ORDERED: FAMOTIDINE 20 MG/2 ML VIAL IV ONE (04:30)
[2024-10-22] MEDS ORDERED: MORPHINE 4 MG/ML SYR ONE ×2 (04:30→06:11)
[2024-10-22] MEDS ORDERED: KETOROLAC 30 MG/ML INJ ONE (04:30)
[2024-10-22 04:56] LABS: Absolute Eosinophils 0.3 K/uL (0-0.5); Absolute Lymphocytes (CBC) 1.8 K/uL (0.7-4.9); Absolute Monocytes 0.4 K/uL (0.1-1.3); Basophils % 0.4 % (0-1.3); Eosinophils % 3.3 % (0-4.4); Hematocrit 40.3 % (36.0-45.0); Hemoglobin 13.9 g/dL (12.0-15.0); MCH 29.2 pg (27.0-35.0); MCHC 34.6 g/dL (32.0-36.0); MCV 84.5 fL (80-100); MPV 7.9 fL (7.6-11.3); Neutrophils % 75.3 % (41.7-73.7); Nucleated Red Blood Cells % 0.2 % (0-0); Platelets 314 thou/uL (152-406); RBC Red Blood Cell Count 4.77 M/uL (3.86-4.86); Red Cell Distribution Width 13.8 % (12.1-15.2)
[2024-10-22 05:11] LABS: ALT/SGPT 26 U/L (13-56); Albumin 3.6 g/dL (3.4-5.0); Alkaline Phosphatase 97 U/L (45-117); Anion Gap 9.5 mEq/L (5.0-15.0); BUN Blood Urea Nitrogen 10 mg/dL (7-18); Bicarbonate 23 mEq/L (21-32); Bilirubin Total 0.7 mg/dL (0.2-1.0); Globulin 3.7 g/dL (2.3-3.5); Glomerular Filtration Rate 87 ml/min (=/>90); Glucose Level 128 mg/dL (74-106); Lipase 29 U/L (13-75); Potassium 3.5 mEq/L (3.5-5.1); Protein, Total 7.3 g/dL (6.4-8.2); Sodium Level 138 mEq/L (136-145)
[2024-10-22 05:16] LABS: AST/SGOT < 10 U/L (15-37)
--- NOTE | 2024-10-22 06:04 | RAD REPORT ---
EXAMINATION: Abdomen Pelvis W Contrast CLINICAL INDICATION: Female, 34 years old.ABD PAIN TECHNIQUE: CT abdomen and pelvis was performed, after the administration of IV contrast, as per [facility]. Axial, sagittal and coronal reconstructions were obtained. One or more of the following dose reduction techniques were used: Automated exposure control, adjustment of the mA and/o r kV according to patient size, and/or iterative reconstruction. Unless otherwise specified, incidental findings do not require dedicated imaging follow-up. [id number]. COMPARISON: No prior exam. FINDINGS: LOWER CHEST: No acute process identified.No significant pericardial effusion. UPPER GI: No significant abnormality. LIVER: No significant focal abnormality. GALLBLADDER/BILE DUCTS: No biliary ductal dilatation.? PANCREAS: No mass, ductal dilation, or verenice-pancreatic fluid. SPLEEN: Unremarkable. ADRENALS: No adrenal masses. KIDNEYS AND URETERS: No hydronephrosis.No suspicious renal mass. ABDOMINAL AORTA AND OTHER VESSELS: Normal caliber aorta and IVC. PERITONEUM: No abnormal free fluid. No free air. LYMPH NODES: No pathologic lymphadenopathy. ABDOMINAL WALL: Unremarkable SMALL BOWEL/COLON: Small bowel has normal course and caliber. No colonic wall thickening or pericolon ic inflammatory changes.Normal appendix. Moderate formed stool burden. URINARY BLADDER: Underdistended but grossly unremarkable. REPRODUCTIVE ORGANS: IUD is low lying and out of position. Is present in the lower uterine segment. MUSCULOSKELETAL: No acute or suspicious osseous abnormality. ADDITIONAL FINDINGS: None. IMPRESSION: No acute findings within the abdomen or pelvis. No appendicitis. The IUD is out of position in the lower uterine segment and should be removed.
[2024-10-22] MEDS ORDERED: DICYCLOMINE HCL 20 MG/2 ML AMP IM ONE (06:11)
[2024-10-22 06:26] LABS: Specific Gravity 1.018 (1.005-1.030); Urine Bacteria None Seen /HPF (<20); Urine Bilirubin NEGATIVE (Negative); Urine Blood 3+ (Negative); Urine Clarity Turbid (Clear); Urine Color Light-Yellow (Yellow); Urine Glucose NEGATIVE (Negative); Urine Ketones NEGATIVE (Negative); Urine Micro Reflex YN NO BILL MICROSCOPIC; Urine Mucus Slight /HPF (None Seen); Urine Nitrite NEGATIVE (Negative); Urine Protein NEGATIVE (Negative); Urine RBC <5 /HPF (None Seen); Urine Urobilinogen Normal (Normal)
--- NOTE | 2024-10-22 07:52 | RAD REPORT ---
Abdomen Exam Limited: 10/22/2024 7:23 AM CLINICAL HISTORY: ABD PAIN STUDY: Limited right upper quadrant ultrasound of abdomen. COMPARISON: Same day CT FINDINGS: Liver: Limited evaluation. Hepatic steatosis noted. Bile ducts: Common bile duct is mildly dilated. Common bile duct measures 6 mm. Gallbladder: Negative for cholelithiasis or acute cholecystitis. No gallbladder wall thickening. No p ericholecystic fluid. Possible 8 mm gallbladder polyp or adherent sludge at the fundus. IMPRESSION: Negative for cholelithiasis or acute cholecystitis. Possible gallbladder polyp or adherent sludge measuring 8 mm. Recommend 12 month follow-up [facility] ultrasound.
--- NOTE | 2024-10-22 08:06 | ER ---
Nurse's Notes [facility] [place] Name: Hansa Avila Age: 34 yrs Sex: Female : 1990 Arrival Date: 10/22/2024 Time: 04:04 Bed 3 Private MD: Diagnosis: Abdominal pain, unspecified Presentation: 10/22 04:23 Chief complaint: Patient states: umbilical abd pain that woke me ffrom sleeping that bm8 started at 0000. Happened once last week. Coronavirus screen: Vaccine status: Patient reports receiving the 2nd dose of the covid vaccine. Client denies travel out of the [place] in the last 14 days. At this time, the client does not indicate any symptoms associated with coronavirus-19. Ebola Screen: No symptoms or risks identified at this time. Initial Sepsis Screen: Does the patient meet any 2 criteria? No. Patient's initial sepsis screen is negative. Does the patient have a suspected source of infection? No. Patient's initial sepsis screen is negative. Risk Assessment: Do you want to hurt yourself or someone else? Patient reports no desire to harm self or others. Onset of symptoms was October 22, 2024 at 00:00. 04:23 Method Of Arrival: Ambulatory bm8 04:23 Acuity: DEB 3 bm8 Triage Assessment: 04:24 General: Appears in no apparent distress. uncomfortable, Behavior is calm, cooperative, bm8 appropriate for age. Pain: Complains of pain in umbilical area, posterior aspect of right lateral abdomen and anterior aspect of right lateral abdomen Pain currently is 9 out of 10 on a pain scale. EENT: No deficits noted. No signs and/or symptoms were reported regarding the EENT system. Neuro: No deficits noted. Level of Consciousness is awake, alert, obeys commands, Reports dizziness. Cardiovascular: Capillary refill < 3 seconds in bilateral fingers Patient's skin is warm and dry. Respiratory: Airway is patent Respiratory effort is even, unlabored, Respiratory pattern is regular, symmetrical. GI: Abdomen is round obese, Bowel sounds present X 4 quads. Abdomen is tender to palpation in umbilical area Guarding noted in right lower quadrant and left lower quadrant Reports lower abdominal pain, nausea, Pain is 9 out of 10 on a pain scale. vomiting. : No signs and/or symptoms were reported regarding the genitourinary system. Derm: No signs and/or symptoms reported regarding the dermatologic system. Musculoskeletal: No signs and/or symptoms reported regarding the musculoskeletal system. 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 - Infectious Disease History:: Denies. - Social history:: Smoking status: Patient denies any tobacco usage or history of. Patient/guardian denies using alcohol, street drugs. - Family history:: not pertinent. Screenin:28 [facility] ED Fall Risk Assessment (Adult) History of falling in the last 3 months, bm8 including since admission No falls in past 3 months (0 pts) Confusion or Disorientation No (0 pts) Intoxicated or Sedated No (0 pts) Impaired Gait No (0 pts) Mobility Assist Device Used No (0 pt) Altered Elimination No (0 pt) Score/Fall Risk Level 0 - 2 = Low Risk Oriented to surroundings, Maintained a safe environment, Educated pt \T\ family on fall prevention, incl call for assistance when getting out of bed, Assessed \T\ reinforced patient's understanding of fall precautions, Hourly rounding (assess needs \T\ fall precautionary measures) done, Used ambulatory aids as needed (educated on \T\ assisted with), Used gait belt as appropriate. Abuse screen: Denies threats or abuse. Nutritional screening: No deficits noted. Tuberculosis screening: No symptoms or risk factors identified. Assessment: 06:00 General: Appears in no apparent distress. uncomfortable, Behavior is calm, cooperative, bm8 appropriate for age. Pain: Complains of pain in abdomen Pain currently is 6 out of 10 on a pain scale. Neuro: No deficits noted. Cardiovascular: No deficits noted. Respiratory: No deficits noted. GI: Abdomen is round obese, Bowel sounds present X 4 quads. Reports Pain is 6 out of 10 on a pain scale. Patient currently denies nausea. 07:12 Reassessment: Patient appears in no apparent distress at this time. Patient and/or db family updated on plan of care and expected duration. Pain level reassessed. Patient is alert, oriented x 3, equal unlabored respirations, skin warm/dry/pink. PT AMBULATORY TO RESTROOM. 09:05 Reassessment: Patient appears in no apparent distress at this time. Patient and/or db family updated on plan of care and expected duration. Pain level reassessed. Patient is alert, oriented x 3, equal unlabored respirations, skin warm/dry/pink. Patient states feeling better. Patient states symptoms have improved. Vital Signs: 04:23 BP 174 / 110; Pulse 106; Resp 19; Temp 98.3; Pulse Ox 99% ; Weight 135.17 kg; Height 5 bm8 ft. 10 in. ; Pain 9/10; 06:00 BP 157 / 105; Pulse 98; Resp 18; Temp 98.3; Pulse Ox 98% ; Pain 6/10; bm8 06:53 BP 153 / 96; Pulse 89; Resp 20; Pulse Ox 99% ; jj7 07:30 BP 138 / 94; Pulse 98; Resp 18; Pulse Ox 99% on R/A; db 08:30 BP 133 / 90; Pulse 93; Resp 16; Pulse Ox 98% ; db 04:23 Body Mass Index 42.76 (135.17 kg, 177.8 cm) bm8 04:23 Pain Scale: Adult bm8 06:00 Pain Scale: Adult bm8 [place] Coma Score: 04:28 Eye Response: spontaneous(4). Motor Response: obeys commands(6). Verbal Response: bm8 oriented(5). Total: 15. 06:00 Eye Response: spontaneous(4). Motor Response: obeys commands(6). Verbal Response: bm8 oriented(5). Total: 15. 07:10 Eye Response: spontaneous(4). Motor Response: obeys commands(6). Verbal Response: sp4 oriented(5). Total: 15. ED Course: 04:09 Patient arrived in ED. gm2 04:20 Stanton Eason MD is Attending Physician. sp4 04:23 Jeff Greene, RN is Primary Nurse. bm8 04:24 Triage completed. bm8 04:24 Arm band placed on right wrist. bm8 04:28 Patient has correct armband on for positive identification. Bed in low position. Call bm8 light in reach. Side rails up X 1. Adult w/ patient. Client placed on continuous cardiac and pulse oximetry monitoring. NIBP monitoring applied. Pulse ox on. NIBP on. Door closed. Noise minimized. Warm blanket given. Verbal reassurance given. Head of bed elevated. 04:35 Missed attempt(s): 20 gauge in left antecubital area. Bleeding controlled, band aid jj7 applied, catheter tip intact. 04:35 Inserted saline lock: 20 gauge in left hand, using aseptic technique. Blood collected. jj7 Flushed with 10 mL NS. 04:40 Initial lab(s) drawn, by ED staff, sent to lab. Patient maintains SpO2 saturation bm8 greater than 95% on room air. 04:48 Test, Serum Sent. jj7 04:48 CBC with Diff Sent. jj7 04:48 CMP Sent. jj7 04:49 Lipase Sent. jj7 05:51 CT Abd/Pelvis - IV Contrast Only In Process Unspecified. EDMS 07:04 Report given to JESSENIA RN AND REINA RN. jj7 07:13 Attending Physician role handed off by Stanton Eason MD rt 07:13 Magdi Hess MD is Attending Physician. rt 07:25 US Abdomen Limited In Process Unspecified. EDMS 08:04 Esteban Pruett MD is Referral Physician. rt 09:03 Provided Education on: DISCHARGE AND FOLLOWUP. db 09:03 No provider procedures requiring assistance completed. IV discontinued, intact, db bleeding controlled, No redness/swelling at site. Administered Medications: 04:37 Drug: Famotidine IVP 20 mg IVP once; dilute with 10 mL 0.9% NaCl; give over 2 minutes jj7 Route: IVP; Site: left hand; 06:21 Follow up: Response: No adverse reaction bm8 04:37 Drug: TORadol - Ketorolac IVP 30 mg IVP once Route: IVP; Site: left hand; jj7 06:21 Follow up: Response: No adverse reaction bm8 04:37 Drug: Ondansetron IVP 8 mg IVP once; over 2 minutes Route: IVP; Site: left hand; jj7 06:21 Follow up: Response: No adverse reaction bm8 04:37 Drug: morphine IVP or IV 4 mg IVP once over 4 mins Route: IVP; Infused Over: 4 mins; jj7 Site: left hand; 06:21 Follow up: Response: No adverse reaction bm8 04:37 Drug: NS 0.9% IV 1000 ml IV at 1 bolus Per protocol; to be given as a bolus over 60 jj7 minutes Route: IV; Rate: 1 bolus; Site: left hand; 06:21 Follow up: Response: No adverse reaction; IV Status: Completed infusion bm8 06:20 Drug: Dicyclomine IM 20 mg IM once Route: IM; Site: right deltoid; bm8 09:04 Follow up: Response: No adverse reaction db 06:21 Drug: morphine IVP or IV 4 mg IVP once over 4 mins Route: IVP; Infused Over: 4 mins; bm8 Site: left hand; 09:04 Follow up: Response: No adverse reaction db 08:35 Drug: morphine IVP or IV 2 mg IVP once over 4 mins Route: IVP; Infused Over: 4 mins; db Site: left wrist; 09:04 Follow up: Response: No adverse reaction; Pain is decreased db 08:40 Drug: GI Cocktail without - (Maalox PO 30 ml, Lidocaine Mucous Membrane 2 % 15 db ml) PO once Route: PO; 09:04 Follow up: Response: No adverse reaction; Pain is decreased db Medication: 04:28 VIS not applicable for this client. bm8 Outcome: 08:05 Discharge ordered by . rt 09:03 Discharged to home ambulatory, with family, db 09:03 Condition: stable 09:03 Discharge instructions given to patient, family, Instructed on discharge instructions, follow up and referral plans. Prescriptions given X 4, 09:05 Patient left the ED. db Signatures: Dispatcher [employer] EDOlu Hneley RN RN jj7 Reina Stern RN RN Magdi Sifuentes MD MD rt Stanton Eason MD MD sp4 Margarette Up 2 Jeff Greene RN RN bm8
--- NOTE | 2024-10-22 08:06 | EDPHYS ---
Physician Documentation [facility] Name: Hansa Avila Age: 34 yrs Sex: Female : 1990 Arrival Date: 10/22/2024 Time: 04:04 Bed 3 Private MD: ED Physician Magdi eHss HPI: 10/22 04:20 This 34 yrs old Female presents to ER via Unassigned with complaints of sp4 Abdominal Pain, Nausea/Vomiting. 07:10 34-year-old female presents with moderate to severe right upper quadrant abdominal pain sp4 associated with vomiting. History of 2 pregnancies in the past. History of IUD.. 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 - Infectious Disease History:: Denies. - Social history:: Smoking status: Patient denies any tobacco usage or history of. Patient/guardian denies using alcohol, street drugs. - Family history:: not pertinent. ROS: 07:10 Constitutional: Negative for fever, chills, and weight loss, positive vomiting positive sp4 right upper quadrant abdominal pain 07:10 All other systems are negative, Exam: 07:10 Constitutional: This is a well developed, well nourished patient who is awake, alert, sp4 and in no acute distress. Head/Face: Normocephalic, atraumatic. Eyes: Pupils equal round and reactive to light, extra-ocular motions intact. Lids and lashes normal. Conjunctiva and sclera are not injected. Cornea within normal limits. Periorbital areas with no swelling, redness, or edema. ENT: Nares patent. No nasal discharge, no septal abnormalities noted. Tympanic membranes are normal and external auditory canals are clear. Oropharynx with no redness, swelling, or masses, exudates, or evidence of obstruction, uvula midline. Mucous membranes moist. Neck: Trachea midline, no thyromegaly or masses palpated, and no cervical lymphadenopathy. Supple, full range of motion without nuchal rigidity, or vertebral point tenderness. Chest/axilla: Normal chest wall appearance and motion. Nontender with no deformity. No lesions are appreciated. Cardiovascular: Regular rate and rhythm with a normal S1 and S2. No gallops, murmurs, or rubs. Normal PMI, no JVD. No pulse deficits. Respiratory: Lungs have equal breath sounds bilaterally, clear to auscultation and percussion. No rales, rhonchi or wheezes noted. No increased work of breathing, no retractions or nasal flaring. Abdomen/GI: Soft, with normal bowel sounds. No distension or tympany. No guarding or rebound. No evidence of tenderness throughout. Back: No spinal tenderness. No costovertebral tenderness. Skin: Warm, dry with normal turgor. Normal color with no rashes, no lesions, and no evidence of cellulitis. MS/ Extremity: Pulses equal, no cyanosis. Neurovascular intact. Full, normal range of motion. Neuro: Awake and alert, GCS 15, oriented to person, place, time, and situation. Cranial nerves II-XII grossly intact. Motor strength 5/5 in all extremities. Sensory grossly intact. Psych: Awake, alert, with orientation to person, place and time. Behavior, mood, and affect are within normal limits Vital Signs: 04:23 BP 174 / 110; Pulse 106; Resp 19; Temp 98.3; Pulse Ox 99% ; Weight 135.17 kg; Height 5 bm8 ft. 10 in. ; Pain 9/10; 06:00 BP 157 / 105; Pulse 98; Resp 18; Temp 98.3; Pulse Ox 98% ; Pain 6/10; bm8 06:53 BP 153 / 96; Pulse 89; Resp 20; Pulse Ox 99% ; jj7 07:30 BP 138 / 94; Pulse 98; Resp 18; Pulse Ox 99% on R/A; db 08:30 BP 133 / 90; Pulse 93; Resp 16; Pulse Ox 98% ; db 04:23 Body Mass Index 42.76 (135.17 kg, 177.8 cm) bm8 04:23 Pain Scale: Adult bm8 06:00 Pain Scale: Adult bm8 Granton Coma Score: 04:28 Eye Response: spontaneous(4). Motor Response: obeys commands(6). Verbal Response: bm8 oriented(5). Total: 15. 06:00 Eye Response: spontaneous(4). Motor Response: obeys commands(6). Verbal Response: bm8 oriented(5). Total: 15. 07:10 Eye Response: spontaneous(4). Motor Response: obeys commands(6). Verbal Response: sp4 oriented(5). Total: 15. MDM: 04:21 Medical Screening Exam initiated sp4 07:10 Differential diagnosis: Nonspecific abd pain, gastritis, cholecystitis, pancreatitis, sp4 diverticulitis, viral gastroenteritis, gastroenteritis. Data reviewed: vital signs, nurses notes, lab test result(s), radiologic studies, CT scan, ultrasound. ED course: EXAMINATION: Abdomen Pelvis W Contrast CLINICAL INDICATION: Female, 34 years old.ABD PAIN TECHNIQUE: CT abdomen and pelvis was performed, after the administration of IV contrast, as per department protocol. Axial, sagittal and coronal reconstructions were obtained. One or more of the following dose reduction techniques were used: Automated exposure control, adjustment of the mA and/or kV according to patient size, and/or iterative reconstruction. Unless otherwise specified, incidental findings do not require dedicated imaging follow-up. [id number]. COMPARISON: No prior exam. FINDINGS: LOWER CHEST: No acute process identified.No significant pericardial effusion. UPPER GI: No significant abnormality. LIVER: No significant focal abnormality. GALLBLADDER/BILE DUCTS: No biliary ductal dilatation.? PANCREAS: No mass, ductal dilation, or verenice-pancreatic fluid. SPLEEN: Unremarkable. ADRENALS: No adrenal masses. KIDNEYS AND URETERS: No hydronephrosis.No suspicious renal mass. ABDOMINAL AORTA AND OTHER VESSELS: Normal caliber aorta and IVC. PERITONEUM: No abnormal free fluid. No free air. LYMPH NODES: No pathologic lymphadenopathy. ABDOMINAL WALL: Unremarkable SMALL BOWEL/COLON: Small bowel has normal course and caliber. No colonic wall thickening or pericolonic inflammatory changes.Normal appendix. Moderate formed stool burden. URINARYBLADDER: Underdistended but grossly unremarkable. REPRODUCTIVE ORGANS: IUD is low lying and out of position. Is present in the lower uterine segment. MUSCULOSKELETAL: No acute or suspicious osseous abnormality. ADDITIONAL FINDINGS: None. IMPRESSION: No acute findings within the abdomen or pelvis. No appendicitis. The IUD is out of position in the lower uterine segment and should be removed. . 07:15 Consideration of Admission/Observation Escalation of care including sp4 admission/observation considered. Transition of care: After a detail discussion of the patient's case, care is transferred to Magdi Hess MD. 09:54 I considered the following discharge prescriptions or medication management in the rt emergency department Medications were administered in the Emergency Department. See MAR. Independent interpretation of the following test(s) in the Emergency Department CT Scan: My interpretation is No bowel obstruction syndrome interpretation of CT scan images. Care significantly affected by the following chronic conditions: Diabetes. Counseling: I had a detailed discussion with the patient and/or guardian regarding the historical points, exam findings, and any diagnostic results supporting the discharge/admit diagnosis, lab results, radiology results, the need for outpatient follow up, to return to the emergency department if symptoms worsen or persist or if there are any questions or concerns that arise at home. Response to treatment: the patient's symptoms have mildly improved after treatment. 10/22 04:21 Order name: CBC with Diff; Complete Time: 05:26 sp4 10/22 04:21 Order name: CMP; Complete Time: 05:26 sp4 10/22 04:21 Order name: Lipase; Complete Time: 05:26 sp4 10/22 04:21 Order name: UA W/ Microscopic; Complete Time: 07:14 sp4 10/22 04:36 Order name: Test, Serum; Complete Time: 05:26 jj7 10/22 04:21 Order name: CT Abd/Pelvis - IV Contrast Only; Complete Time: 06:10 sp4 10/22 05:26 Order name: US Abdomen Limited; Complete Time: 07:57 sp4 10/22 04:21 Order name: IV Saline Lock; Complete Time: 04:37 sp4 10/22 04:21 Order name: Labs collected and sent; Complete Time: 04:37 sp4 Administered Medications: 04:37 Drug: Famotidine IVP 20 mg IVP once; dilute with 10 mL 0.9% NaCl; give over 2 minutes jj7 Route: IVP; Site: left hand; 06:21 Follow up: Response: No adverse reaction bm8 04:37 Drug: TORadol - Ketorolac IVP 30 mg IVP once Route: IVP; Site: left hand; jj7 06:21 Follow up: Response: No adverse reaction bm8 04:37 Drug: Ondansetron IVP 8 mg IVP once; over 2 minutes Route: IVP; Site: left hand; jj7 06:21 Follow up: Response: No adverse reaction bm8 04:37 Drug: morphine IVP or IV 4 mg IVP once over 4 mins Route: IVP; Infused Over: 4 mins; jj7 Site: left hand; 06:21 Follow up: Response: No adverse reaction bm8 04:37 Drug: NS 0.9% IV 1000 ml IV at 1 bolus Per protocol; to be given as a bolus over 60 jj7 minutes Route: IV; Rate: 1 bolus; Site: left hand; 06:21 Follow up: Response: No adverse reaction; IV Status: Completed infusion bm8 06:20 Drug: Dicyclomine IM 20 mg IM once Route: IM; Site: right deltoid; bm8 09:04 Follow up: Response: No adverse reaction db 06:21 Drug: morphine IVP or IV 4 mg IVP once over 4 mins Route: IVP; Infused Over: 4 mins; bm8 Site: left hand; 09:04 Follow up: Response: No adverse reaction db 08:35 Drug: morphine IVP or IV 2 mg IVP once over 4 mins Route: IVP; Infused Over: 4 mins; db Site: left wrist; 09:04 Follow up: Response: No adverse reaction; Pain is decreased db 08:40 Drug: GI Cocktail without - (Maalox PO 30 ml, Lidocaine Mucous Membrane 2 % 15 db ml) PO once Route: PO; 09:04 Follow up: Response: No adverse reaction; Pain is decreased db Disposition Summary: 10/22/24 08:05 Discharge Ordered Notes: Location: Home rt Problem: new rt Symptoms: have improved rt Condition: Stable rt Diagnosis - Abdominal pain, unspecified rt Followup: rt - With: Esteban Pruett MD - When: 2 - 3 days - Reason: Discharge Instructions: - Discharge Summary Sheet rt - Abdominal Pain, Adult rt Forms: - Work release form rt - Medication Reconciliation Form rt - Antibiotic Education rt - Prescription Opioid Use rt - Patient Portal Instructions rt - Leadership Thank You Letter rt Prescriptions: - Carafate 100 mg/mL Oral suspension - take 10 milliliter ORAL route 6 times per day as needed; 150 milliliter; rt Refills: 0, Product Selection Permitted - ondansetron 4 mg Oral Tablet,disintegrating - take 1 tablet ORAL route every 6 hours as needed for nausea and vomiting; 15 rt tablet; Refills: 0, Product Selection Permitted - Protonix 40 mg Oral Tablet - take 1 tablet ORAL route once daily; 30 tablet; Refills: 0, Product Selection rt Permitted - Tramadol 50 mg Oral tablet - take 1 tablet ORAL route every 8 hours as needed; 15 tablet; Refills: 0, rt Product Selection Permitted Signatures: Dispatcher [employer] EDOlu Henley RN RN jj7 Fiordaliza Stern RN RN db Magdi Hess MD MD rt Stanton Eason MD MD sp4 Jeff Greene RN RN bm8 Corrections: (The following items were deleted from the chart) 04:21 04:21 Abdomen Pelvis W Con+CT.RAD.BRZ ordered. EDMS EDMS 04:22 04:22 UA W/ Microscopic+U.LAB.BRZ ordered. EDMS EDMS 06:26 04:21 Test, Urine+UC.LAB.BRZ ordered. EDMS EDMS
[2024-10-22] MEDS ORDERED: LIDOCAINE VISCOUS 2% 10ML ORAL SOLN ONE (08:47)
[2024-10-22] MEDS ORDERED: MAGNES/ALUMIN/SIMET 30ML UCUP ONE (08:47)
[2024-10-22] MEDS ORDERED: MORPHINE 2 MG/ML SYR ONE (08:48)
[2024-10-22 09:20] VITALS: TEMP 98.3
[2024-10-22 09:34] VITALS: BP 133/90; O2SAT 98
== END 2024-10-22 09:05 | disposition home or self-care (01) ==
LOC: ER 04:04
DX: R10.11 Right upper quadrant pain (principal); R11.10 Vomiting, unspecified; T83.32XA Displacement of intrauterine contraceptive device, initial encounter; E11.9 Type 2 diabetes mellitus without complications
CPT/HCPCS: 85025; 81001; 36415; 84703; 83690; 80053; 74177; 76705; Q9967; J0500; J2270; J2405; J7030; 96372; 99284